=== PATIENT | female | born 1965 | race Caucasian/White ===

== ENCOUNTER → 2017-02-24 | Outpatient (CLI) | payer OTHER | END | disposition disaster alternative care site (69) | LOC: GAMB 06:21 | DX: R11.2 Nausea with vomiting, unspecified (principal); R42 Dizziness and giddiness; Z79.899 Other long term (current) drug therapy; Z88.2 Allergy status to sulfonamides; Z88.8 Allergy status to other drugs, medicaments and biological substances | CPT/HCPCS: A0425; A0427; J2405; J7030 ==